=== PATIENT | female | born 1965 | race African-American/Black ===

== ENCOUNTER → 2017-04-01 11:34 | Emergency (ER) | payer BC, OTHER ==
[2017-04-01 12:36] VITALS: BP 128/78
--- NOTE | 2017-04-01 13:48 | UC ---
Lower Extremity/Ankle HPI - HPI Summary HPI Summary: bilateral feet pain x 6 months + numbness and tingling , no known injury , pain is worse when lying down, better when active or sitting up hx of prediabetic - History of Current Complaint Chief Complaint: UCLowerExtremity Stated Complaint: LEG COMPLAINT BOTH Time Seen by Provider: 04/01/17 12:06 Hx Obtained From: Patient Hx Last Menstrual Period: 06/18/14 ?: No Onset/Duration: Gradual Onset, Lasting Weeks - 24, Still Present Severity Initially: Moderate Severity Currently: Moderate Aggravating Factor(s): Other - rest Alleviating Factor(s): Other - movement Able to Bear Weight: Yes - Allergies/Home Medications Allergies/Adverse Reactions: Allergies Allergy/AdvReac Type Severity Reaction Status Date / Time Bee Venom Allergy Severe Anaphylatic Verified 04/01/17 11:47 Shock Hydrocodone AdvReac Intermediate Anxiety Verified 04/01/17 11:47 Home Medications: Home Medications Omeprazole CAP* [Prilosec CAP* 20 MG] 20 mg PO DAILY PRN 04/01/17 [History Confirmed 04/01/17] Zolpidem TAB* [Ambien TAB*] 10 mg PO BEDTIME PRN 04/01/17 [History Confirmed 01/08] PMH/Surg Hx/FS Hx/Imm Hx Endocrine History: Diabetes - prediabetic - Surgical History Surgical History: Yes Surgery Procedure, Year, and Place: gastric sleeve 03/06. bilateral knees. breast reduction - Family History Known Family History: Positive: Diabetes - Social History Alcohol Use: Rare Alcohol Amount: States she drank last night Substance Use Type: None Substance Use Comment - Amount & Last Used: Pt denies Smoking Status (MU): Current Some Day Smoker Type: Cigarettes Length of Time of Smoking/Using Tobacco: 1 pk/every 2 weeks - Immunization History Most Recent Influenza Vaccination: 4 YRS AGO Most Recent Tetanus Shot: 15 YRS AGO Most Recent Pneumonia Vaccination: NEVER Review of Systems Constitutional: Negative Skin: Negative Eyes: Negative ENT: Negative Respiratory: Negative Is Patient Immunocompromised?: No All Other Systems Reviewed And Are Negative: Yes Physical Exam Triage Information Reviewed: Yes Appearance: Ill-Appearing, Pain Distress Vital Signs: Initial Vital Signs Temp 96.8 F 04/01/17 12:30 Pulse 108 04/01/17 12:30 Resp 20 04/01/17 12:30 BP 128/78 04/01/17 12:30 Pulse Ox 98 04/01/17 12:30 Vital Signs Reviewed: Yes Eyes: Positive: Conjunctiva Clear ENT: Positive: Normal ENT inspection, Hearing grossly normal, Pharynx normal, Pharyngeal erythema Neck exam: Normal Neck: Positive: Supple, Nontender, No Lymphadenopathy Respiratory: Positive: Chest non-tender, Lungs clear, Normal breath sounds Cardiovascular: Positive: RRR, No Murmur, Pulses Normal Abdominal Exam: Normal Abdomen Description: Positive: Nontender, Soft Bowel Sounds: Positive: Present Neurological: Positive: Other: - lower ext: no calf tenderness, normal color, normal distal pulses, no tenderness, good ROM Lower Extremity Course/Dx - Differential Dx/Diagnosis Provider Diagnoses: parasthesia lower ext. Discharge - Discharge Plan Condition: Stable Disposition: HOME Prescriptions: Gabapentin CAP(*) [Neurontin 300 CAP(*)] 300 mg PO TID #90 cap Patient Education Materials: Peripheral Neuropathy (ED) Referrals: No Primary Care Phys,NOPCP [Primary Care Provider] - 5 Days Additional Instructions: will check cbc, cmp ,tsh, hgA1C call the office in one day for the results
[2017-04-01 18:58] LABS: Albumin 4.6 g/dL (3.2-5.2); BUN/Creatinine Ratio 29.2 (8-20); Calcium 10.4 mg/dL (8.6-10.3); EGFR African American 109.4 (>60); EGFR Non-African American 85.1 (>60); Potassium 3.4 mmol/L (3.5-5.0); Total Bilirubin 0.8 mg/dL (0.2-1.0); Total Protein 7.6 g/dL (6.4-8.9)
[2017-04-01 19:11] LABS: TSH (Thyroid Stimulating Horm) 2.03 mcIU/mL (0.34-5.60)
[2017-04-01 19:28] LABS: Hematocrit 47 % (35-47); Hemoglobin 15.3 g/dl (12.0-16.0); Mean Corpuscular HGB Conc 33 g/dl (31-36); Mean Corpuscular Hemoglobin 27 pg (27-31); Mean Corpuscular Volume 82 fL (80-97); Mean Platelet Volume 10 um3 (7.4-10.4); Red Blood Count 5.66 10^6/ul (4.0-5.4); Red Cell Distribution Width 19 % (10.5-15); White Blood Count 4.6 10^3/ul (3.5-10.8)
[2017-04-01 19:29] LABS: Add Diff/Slide Review? Slide Review Added; Comments Flag Yes
[2017-04-01 20:20] LABS: Platelet Morphology Large; RBC Morphology Normal (Normal)
--- NOTE | 2017-04-02 14:13 | UC ---
Progress - Progress Note Progress Note: no significant abnormal lab findings mild elevation of HgA1c : ? prediabetic nothing that could fully explain her symptoms please have the pt. follow up with her pcp next week for more evaluation
== END | disposition home or self-care (01) ==
LOC: UCCORT 11:34
DX: R20.2 Paresthesia of skin (principal); M79.672 Pain in left foot; M79.671 Pain in right foot; F17.210 Nicotine dependence, cigarettes, uncomplicated; Z91.030 Bee allergy status; Z88.5 Allergy status to narcotic agent
CPT/HCPCS: 36415; 80053; 83036; 84443; 85025; 99212; G0463